=== PATIENT | male | born 1980 | race Caucasian/White ===

== ENCOUNTER 2017-06-18 07:42 | Emergency (ER) | payer OTHER ==
[~2017-06-18] VITALS: Ht 160 cm; Wt 77.1 kg
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
[2017-06-18] MEDS ORDERED: TDAP [DIPH/PERTUSSIS/TET] 0.5 ML VIAL IM ONE ×2 (08:00→08:01)
[2017-06-18 08:35] VITALS: BP 150/99
--- NOTE | 2017-06-18 08:36 | NUR ---
Patient discharged under custody in stable condition. Written and verbal after care instructions given. Patient verbalizes understanding of instruction. Vitals signs stable.
== END 2017-06-18 08:36 ==
LOC: ER 07:43
DX: S01.81XA Laceration without foreign body of other part of head, initial encounter (principal); W22.8XXA Striking against or struck by other objects, initial encounter; Y92.89 Other specified places as the place of occurrence of the external cause; Y93.89 Activity, other specified; Y99.8 Other external cause status
CPT/HCPCS: 90715; A4606; A6402; A6403; Z7610

== ENCOUNTER 2022-05-21 16:59 | Emergency (ER) | payer SELFPAY ==
[~2022-05-21] VITALS: Ht 165.1 cm; Wt 68.0 kg
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
[2022-05-21] MEDS ORDERED: TDAP [DIPH/PERTUSSIS/TET] 0.5 ML VIAL IM ONE ×2 (17:30→18:24)
[2022-05-21 18:34] VITALS: BP 131/84
--- NOTE | 2022-05-21 18:34 | NUR ---
Patient discharged in stable condition with [employer] officers. Written and verbal after care instructions given. Patient and the officers verbalized understanding of instruction.
== END 2022-05-21 18:35 ==
LOC: ER 17:08
DX: S20.412A Abrasion of left back wall of thorax, initial encounter (principal); W50.4XXA Accidental scratch by another person, initial encounter; Y93.89 Activity, other specified; Y92.89 Other specified places as the place of occurrence of the external cause; Y99.8 Other external cause status
CPT/HCPCS: 90715